=== PATIENT | female | born 1960 | race Two or more races ===

== ENCOUNTER 2018-03-07 14:02 | Outpatient (CLI) | payer OTHER | END 2018-03-07 14:16 | disposition home or self-care (01) | LOC: MAMO-SONO 14:02 → SONOGRAMA 14:45 | DX: D25.1 Intramural leiomyoma of uterus (principal); Z12.31 Encounter for screening mammogram for malignant neoplasm of breast; N64.4 Mastodynia; Z12.39 Encounter for other screening for malignant neoplasm of breast ==

== ENCOUNTER 2020-02-20 10:12 | Outpatient (CLI) | payer OTHER | END 2020-02-20 10:22 | disposition home or self-care (01) | LOC: MAMO-SONO 10:12 | PROVIDERS: ATTEND Obstetrics & Gynecology Obstetrics | DX: Z12.31 Encounter for screening mammogram for malignant neoplasm of breast (principal); N60.11 Diffuse cystic mastopathy of right breast; N60.12 Diffuse cystic mastopathy of left breast; R19.09 Other intra-abdominal and pelvic swelling, mass and lump ==

== ENCOUNTER 2020-08-19 09:22 | Outpatient (CLI) | payer OTHER | END 2020-08-19 09:34 | disposition home or self-care (01) | LOC: MRI 09:22 | PROVIDERS: ATTEND Specialist | DX: K83.8 Other specified diseases of biliary tract (principal) | CPT/HCPCS: 74181 ==

== ENCOUNTER 2021-09-08 09:37 | Outpatient (CLI) | payer OTHER | END 2021-09-08 09:59 | disposition home or self-care (01) | LOC: MAMO-SONO 09:37 | PROVIDERS: ATTEND Internal Medicine Cardiovascular Disease | DX: N60.12 Diffuse cystic mastopathy of left breast (principal); N60.11 Diffuse cystic mastopathy of right breast; Z12.31 Encounter for screening mammogram for malignant neoplasm of breast ==

== ENCOUNTER 2023-04-05 13:31 | Outpatient (CLI) | payer OTHER | END 2023-04-05 13:50 | disposition home or self-care (01) | LOC: MAMO-SONO 13:31 | PROVIDERS: ATTEND Internal Medicine Cardiovascular Disease | DX: Z12.31 Encounter for screening mammogram for malignant neoplasm of breast (principal); N60.12 Diffuse cystic mastopathy of left breast; N60.11 Diffuse cystic mastopathy of right breast; I11.9 Hypertensive heart disease without heart failure; N85.2 Hypertrophy of uterus ==

== ENCOUNTER 2025-02-04 08:09 | Outpatient (CLI) | payer OTHER | END 2025-02-04 08:21 | disposition home or self-care (01) | LOC: MAMO-SONO 08:09 | PROVIDERS: ATTEND Internal Medicine Cardiovascular Disease | DX: R10.11 Right upper quadrant pain (principal); I11.9 Hypertensive heart disease without heart failure; N60.11 Diffuse cystic mastopathy of right breast; N60.12 Diffuse cystic mastopathy of left breast ==